=== PATIENT | male | born 2000 | race Hispanic/Latino ===

== ENCOUNTER 2022-09-14 11:31 | Emergency (ER) | payer MEDICAID ==
[~2022-09-14] VITALS: Ht 167.6 cm; Wt 73.9 kg
[2022-09-14 11:36] VITALS: BP 124/87
[2022-09-14] MEDS ORDERED: IBUP-2071 PO (12:50)
== END 2022-09-14 13:23 | disposition home or self-care (01) ==
LOC: EDH 11:31
DX: R07.89 Other chest pain (principal)
CPT/HCPCS: 71045; 93005